=== PATIENT | male | born 1945 | race Caucasian/White ===

== ENCOUNTER 2018-01-21 00:32 | Outpatient (CLI) | payer MEDICARE, OTHER, SELFPAY ==
--- NOTE | 2018-01-21 09:01 | DI.US_ITS ---
SYMPTOMS/DIAGNOSIS: F/U AAA, I72.3 ABDOMINAL ULTRASOUND: Comparison CT scan 10/27/15 and 09/25/16. There is aneurysmal dilatation of the right common iliac artery with maximum diameters measuring 2.4 cm AP x 2.[address] scan from 09/25/16 noted a 2.3 cm right common iliac artery aneurysm. There is a left common iliac artery aneurysm measuring maximally 3.5 x 3.2 cm. This compares with 2 cm left common iliac artery aneurysm identified on . There is dilatation of the abdominal aorta with a maximum diameter seen superiorly and measuring almost 3 cm. IMPRESSION: Bilateral common iliac artery aneurysms which appear to have progressed since the most recent examination from 09/25/16, particularly the left common iliac artery aneurysm. CT Angiography of the abdomen and pelvis should be considered for further evaluation.
== END 2018-01-21 00:52 ==
PROVIDERS: PCP Internal Medicine; Visit Provider Surgery
DX: I72.3 Aneurysm of iliac artery (principal)
CPT/HCPCS: 76775

== ENCOUNTER 2018-02-24 01:03 | Outpatient (CLI) | payer MEDICARE, OTHER, SELFPAY ==
--- NOTE | 2018-02-24 14:00 | DI.CT_ITS ---
SYMPTOMS/DIAGNOSIS: ANEURYSM OF ILIAC ARTERY, I72.3 CTA OF THE ABDOMEN AND PELVIS: CT angiography was performed with multi slice acquisition and multi planar and 3D reconstruction. Comparison examination is 09/25/16. There is mild scarring in the lung bases. There is again seen a cyst in the left lobe of the liver. No suspicious hepatic lesions are seen. The spleen, pancreas, gallbladder, bile ducts and adrenal glands are unremarkable. The kidneys show normal and symmetric enhancement. There are bilateral renal cysts. The urinary bladder is intact. The reproductive organs are unremarkable. The bowel shows no evidence of obstruction or inflammation. No findings to suggest an acute appendicitis are present. There is extensive atherosclerosis of the abdominal aorta. There is a 3.1 cm distal abdominal aortic aneurysm just proximal to the bifurcation. There is a 2.3 cm right common iliac artery aneurysm just proximal to its bifurcation. There is extensive atherosclerosis and thrombus noted. There is a 2.2 cm left common iliac artery aneurysm noted. There is atherosclerotic calcification seen of the left common iliac artery. Degenerative changes are seen in the spine, particularly at L5-S1. Since the most recent examination to evaluate this area, there is a compression fracture of the L3 vertebral body with loss of 60% of the height of the vertebral body anteriorly. There is no significant retropulsion. No significant central spinal canal stenosis is seen. IMPRESSION: 1. A 3.1 cm distal abdominal aortic aneurysm. A 2.3 cm right common iliac artery aneurysm. A 2.2 cm left common iliac artery aneurysm. 2. Compression deformity of the L3 vertebral body with loss of 60% of the height of the vertebral body anteriorly. This is age indeterminate. 3. Stable hepatic and renal cysts.
[2018-02-24] MEDS: Omnipaque 350 MG/ML 100 ML BTL IJ (14:29)
== END 2018-02-24 01:23 ==
PROVIDERS: PCP Internal Medicine; Visit Provider Surgery
DX: I72.3 Aneurysm of iliac artery (principal); I71.4 Abdominal aortic aneurysm, without rupture; M48.56XD Collapsed vertebra, not elsewhere classified, lumbar region, subsequent encounter for fracture with routine healing; N28.1 Cyst of kidney, acquired
CPT/HCPCS: 74174; J3490

== ENCOUNTER 2018-09-02 00:48 | Outpatient (CLI) | payer MEDICARE, OTHER, SELFPAY ==
[2018-09-02 12:44] LABS: Kit/Specimen SENT
[2018-09-02 13:27] LABS: Iron 93 ug/dL (50-175)
[2018-09-02 13:43] LABS: Ferritin 329 ng/mL (8-388)
[2018-09-02 21:44] LABS: Estradiol <12 pg/ml (0-40)
[2018-09-05 15:06] LABS: Testosterone, Free 16.6 ng/dL (3.28-12.2); Testosterone, Total 873 ng/dL (240-950)
[2018-09-07 14:58] LABS: Methylenetetrahydrofol Reduc M Heterozygous (Negative)
== END 2018-09-02 01:08 ==
PROVIDERS: PCP Internal Medicine; Visit Provider Obstetrics & Gynecology
DX: D64.9 Anemia, unspecified (principal); E29.1 Testicular hypofunction; E56.9 Vitamin deficiency, unspecified
CPT/HCPCS: 36415; 80053; 83090; 84402; 84403; 81291; 82670; 82728; 83036; 83540; 83835

== ENCOUNTER 2018-10-13 10:19 | Outpatient (CLI) | payer MEDICARE, OTHER, SELFPAY | END 2018-10-13 10:39 | PROVIDERS: PCP Internal Medicine; Visit Provider Obstetrics & Gynecology | DX: I10 Essential (primary) hypertension (principal) | CPT/HCPCS: 36415; 80053; 83090; 82728; 83036 ==

== ENCOUNTER 2018-10-30 10:52 | Outpatient (CLI) | payer MEDICARE, OTHER, SELFPAY ==
[2018-10-30 12:14] LABS: ALT 32 U/L (12-78); Albumin 3.5 g/dL (3.4-5.0); Alkaline Phosphatase 89 U/L (46-116); Anion Gap 8.4 mmol/L (3-11); BUN 23 mg/dL (7-18); Bilirubin, Total 0.8 mg/dL (0.2-1.0); CO2 24.6 mmol/L (21.0-32.0); CREATININE 1.08 mg/dL (0.70-1.30); Calcium 8.8 mg/dL (8.5-10.1); Chloride 105 mmol/L (98-107); Glucose 143 mg/dL (70-100); Potassium 4.5 mmol/L (3.5-5.1); Sodium 138 mmol/L (136-145); Total Protein 6.2 g/dL (6.4-8.2)
[2018-10-30 12:25] LABS: AST 26 U/L (15-37)
[2018-10-30 13:06] LABS: Ferritin 207 ng/mL (8-388)
[2018-11-02 11:08] LABS: Homocysteine 9.8 umol/L (4.5-12.4)
== END 2018-10-30 11:12 ==
PROVIDERS: PCP Internal Medicine; Visit Provider Obstetrics & Gynecology
DX: E88.81 Metabolic syndrome and other insulin resistance (principal); E72.11 Homocystinuria; D64.9 Anemia, unspecified; Z13.0 Encounter for screening for diseases of the blood and blood-forming organs and certain disorders involving the immune mechanism
CPT/HCPCS: 36415; 80053; 83090; 82728; 83036

== ENCOUNTER 2019-02-23 01:30 | Outpatient (CLI) | payer MEDICARE, OTHER, SELFPAY ==
[2019-02-23 10:09] LABS: CREATININE 1.69 mg/dL (0.70-1.30); Estimated GFR 40.09 (mL/min/1.73m2)
--- NOTE | 2019-02-23 11:03 | DI.CT_ITS ---
EXAM: CT ABDOMEN PELVIS CTA CLINICAL HISTORY: ANEURYSM OF ILIAC ARTERY I72.3. TECHNIQUE: IV and oral contrast. Axial CT angiography was performed with multi-slice acquisition and multi-planar and/or 3D reconstruc tions. FINDINGS: There is calcification along the aorta and iliac arteries. There is also tortuosity. There is mild dilatation of the lower abdominal aorta to 3.4 cm. There is no evidence of dissection. The left co mmon iliac artery is quite tortuous. Distal to the area of tortuosity, there is dilatation to 2.3 cm , not significantly changed. The right iliac artery is dilated just proximal to the bifurcation to 2 .5 cm, slightly greater when compared with the previous exam. Distally the internal and external tod ac arteries are normal in diameter. The heart size is normal. The lung bases show minimal scarring. The liver, gallbladder, spleen, pancr eas and adrenals are unremarkable. There are cysts at the lower poles of both kidneys. There are smal l areas of bilateral renal scarring. There is symmetric renal perfusion. There is no gross renal tomy ry stenosis. There is no bowel dilatation or inflammatory change. The bladder and prostate are unrema rkable. High-density material is again noted within a severe compression fracture of L3. IMPRESSION: Severe atherosclerotic changes of the aorta and iliac arteries. Mild increase in aortic aneurysm di latation to 3 .4 cm. Stable 2.3 centimeter left iliac artery aneurysm. Increase in right common iliac artery aneurysm to 2.5 cm.
[2019-02-23] MEDS: Omnipaque 350 MG/ML 100 ML BTL IJ (11:08)
[2019-02-23] MEDS: Normal Saline Flush 10 ML SYR IVP (11:09)
== END 2019-02-23 01:50 ==
PROVIDERS: PCP Internal Medicine; Visit Provider Surgery
DX: I72.3 Aneurysm of iliac artery (principal); I71.4 Abdominal aortic aneurysm, without rupture; I70.0 Atherosclerosis of aorta
CPT/HCPCS: 74174; 82565; J3490

== ENCOUNTER 2020-03-02 01:44 | Outpatient (CLI) | payer MEDICARE, OTHER, SELFPAY ==
[2020-03-02 08:20] LABS: CREATININE 1.01 mg/dL (0.70-1.30)
--- NOTE | 2020-03-02 09:27 | DI.CT_ITS ---
EXAM: CT ABDOMEN PELVIS CTA CLINICAL HISTORY: ANEURYSM OF ILIAC ARTERY,I71.9,AORTIC ANEURYSM. TECHNIQUE: Imaging Protocol: Axial CT angiography was performed with multi-slice acquisition and m ulti-planar and/or 3D reconstructions. CONTRAST MATERIAL: Intravenous: Omnipaque 350 Contrast volume:structured data in ml Oral: yes / no COMPARISON: CT CT ABDOMEN PELVIS CTA from 02/23/2019 FINDINGS: Vascular Structures: Celiac [place]/SMA: No evidence of occlusion or significant stenosis. Renal Arteries: No evidence of occlusion or significant stenosis. There is a single renal artery per fusing each kidney. Atherosclerosis. Aorta: Atherosclerosis. Tortuosity of the abdominal aorta. There is a 3.4 cm distal abdominal aort ic aneurysm. This is unchanged. Pelvis: Iliac Arteries: There is a stable 2.4 cm right common iliac artery aneurysm. There is a stable 2.4 cm left common iliac artery aneurysm. Atherosclerosis. Common Femoral Arteries: No evidence of occlusion or significant stenosis. Atherosclerosis. Soft Tissues: Lung bases:Scarring in the lung bases. Liver: Normal density. Stable 1.3 cm cyst in the left lobe of the liver. Gallbladder and biliary tract: No radiodense calculus or dilation. Pancreas: Normal density, no abnormal calcifications or inflammatory process. Spleen: Normal. Kidneys: Normal size, contour and axis. No radiodense stones or obstructive uropathy. Bilateral renal cysts. Adrenal glands: No masses seen. Bladder: Symmetric distention, no gross wall thickening. Reproductive organs: Mildly enlarged prostate gland. Bowel: No obstruction or bowel wall thickening. No evidence of acute appendicitis. Peritoneal cavity: No ascites, collection or mesenteric inflammatory response. Bones: Degenerative changes. Vertebroplasty of the L3 vertebral body. Lymph nodes: Within normal limits. Soft tissues: Unremarkable. IMPRESSION: Stable distal abdominal aortic aneurysm and bilateral common iliac artery aneurysm since 02/23/2019. RADIATION DOSE DELIVERED: 611.47mGy.cm Total DLP DATA REPOSITORY: All CT scans at this facility are submitted to the National Radiology Data Registry (NRDR) Dose Index Registry (DIR) with the [employer] (ACR). RADIATION OPTIMIZATION: All CT scans at this facility use at least one of these dose optimization te chniques: automated exposure control; mA and/or kV adjustment per patient size (includes targeted exa ms where dose is matched to clinical indication); or iterative reconstruction.
[2020-03-02] MEDS: Normal Saline - Diluent 50 ML VIAL IV (09:31)
[2020-03-02] MEDS: Omnipaque 350 MG/ML 100 ML BTL IJ (09:31)
== END 2020-03-02 02:04 ==
PROVIDERS: PCP Internal Medicine; Visit Provider Surgery
DX: I72.3 Aneurysm of iliac artery (principal); I71.4 Abdominal aortic aneurysm, without rupture
CPT/HCPCS: 74174; 82565; J3490

== ENCOUNTER 2020-03-28 07:24 | Outpatient (CLI) | payer MEDICARE, OTHER, SELFPAY ==
[2020-03-29 12:32] LABS: SARS-CoV-2 RNA Not Detected (NotDetected); SARS-CoV-2 RNA Source Nasal/Nares
== END 2020-03-28 07:44 ==
PROVIDERS: PCP Internal Medicine; Visit Provider Surgery
DX: Z01.818 Encounter for other preprocedural examination (principal); Z11.59 Encounter for screening for other viral diseases
CPT/HCPCS: U0003

== ENCOUNTER 2021-04-06 01:32 | Outpatient (CLI) | payer MEDICARE, SELFPAY ==
[2021-04-06 14:38] LABS: CREATININE 1.1 mg/dL (0.70-1.30)
[2021-04-06] MEDS: Omnipaque 350 MG/ML 100 ML BTL IJ (15:53)
[2021-04-06] MEDS: Normal Saline - Diluent 50 ML VIAL IV (15:54)
--- NOTE | 2021-04-06 15:55 | DI.CT_ITS ---
Exam(s) CT ABDOMEN PELVIS CTA EXAM: CT ABDOMEN PELVIS CTA CLINICAL HISTORY: ANEURYSM OF ILIAC ARTERY I72.3 AORTIC ANEURYSM W/O RUPTURE I71.9. TECHNIQUE: Imaging Protocol: Axial CT angiography was performed with multi-slice acquisition and m ulti-planar and/or 3D reconstructions. CONTRAST MATERIAL: Intravenous: Omnipaque 350 Contrast volume:100 ml Oral: / no COMPARISON: CT CT ABDOMEN PELVIS CTA from 03/02/2020 FINDINGS: The lung bases are clear. There are atherosclerotic changes of the abdominal aorta with heavy calc ification and mural thrombus. There is a distal abdominal aortic aneurysm measuring 3.8 cm compared with 3.4 on the previous exam. The common iliac arteries are heavily calcified and tortuous. The le ft measures 2.4 cm. The right measures 3 cm, increasing from the previous exam where it measured 2.4 cm. The internal and external iliac and femoral arteries are normal in diameter but also heavily ca lcified..The celiac artery and superior mesenteric artery and branches are patent. The liver, spleen, pancreas, adrenals and kidneys are unremarkable. There is no bowel dilatation or inflammatory change. Bladder and prostate are unremarkable. There is a severe compression fracture L3 with high-density material consistent with a previous vertebroplasty. No new compression fracture s are seen. Degenerative changes are greatest at L5-S1. IMPRESSION: Severe atherosclerotic changes. Mild interval increase in size of abdominal aortic aneurysm to 3.8 c m. Increased size of right iliac artery measuring 3 cm. Stable left iliac artery aneurysm of 2.4 cm . RADIATION DOSE DELIVERED: 508.14mGy.cm Total DLP DATA REPOSITORY: All CT scans at this facility are submitted to the National Radiology Data Registry (NRDR) Dose Index Registry (DIR) with the [employer] (ACR). RADIATION OPTIMIZATION: All CT scans at this facility use at least one of these dose optimization te chniques: automated exposure control; mA and/or kV adjustment per patient size (includes targeted exa ms where dose is matched to clinical indication); or iterative reconstruction.
== END 2021-04-06 01:52 ==
PROVIDERS: PCP Internal Medicine; Visit Provider Surgery
DX: I72.3 Aneurysm of iliac artery (principal); I71.4 Abdominal aortic aneurysm, without rupture; Z01.812 Encounter for preprocedural laboratory examination
CPT/HCPCS: 74174; 82565; J3490

== ENCOUNTER → 2023-01-22 01:52 | Outpatient (CLI) | payer MEDICARE, SELFPAY ==
--- NOTE | 2023-01-22 | DI.CT_ITS ---
Exam(s) CT ABDOMEN PELVIS WO EXAM: CT ABDOMEN PELVIS WO CLINICAL HISTORY: AAA I71.40 ILIAC ANEURYSM I72.3. TECHNIQUE: Imaging Protocol: Axial computed tomography images with coronal and sagittal reformatted images were created and reviewed. COMPARISON: CT CT ABDOMEN PELVIS CTA from 04/06/2021 FINDINGS: ABDOMEN: Lung Bases: Coronary artery calcifications are present. Liver: Normal density. No measurable mass. Gallbladder and biliary tract: No radiodense calculus or biliary ductal dilation. Pancreas: Normal density, no abnormal calcifications or inflammatory process. Spleen: Normal. Kidneys: Normal size, contour and axis.No radiodense stones or obstructive uropathy. There again seen bilateral renal cysts which appears stable. Parenchymal calcifications are seen in the right kidney . Adrenal glands: No mass is seen. Lymph nodes: Within normal limits. Abdominal Aorta: There has been interval increase in size of the distal abdominal aortic aneurysm now measuring 4.6 x 4.0 cm. This compares to 4 x 3.4 cm on the prior examination. The more proximal co mponent of the abdominal aortic aneurysm also has increased in size measuring 4.2 x 4.1 cm compared t o 3.2 x 3.1 cm. There is atherosclerosis present. The right iliac artery aneurysm measures 3.2 cm c ompared to 3 cm on the prior examination. The left iliac artery aneurysm measures 2.6 cm compared to 2.4 cm on the prior examination. PELVIS: Bladder:Symmetric distention, no gross wall thickening. Bowel: No obstruction or bowel wall thickening. Appendix is unremarkable. There is a right inguinal hernia containing a small knuckle of small bowel. No evidence of obstruction is seen. Peritoneal cavity: No ascites, collection or mesenteric inflammatory response. No free air. Reproductive organs: There is an enlarged prostate gland. Bones: Within normal limits. There is an old compression fracture deformity of L3 with evidence of ve rtebral plasty. Moderate degenerative changes are seen in the spine. Soft Tissues: Within normal limits. IMPRESSION: Interval increase in size of both the abdominal aortic aneurysm and both common iliac artery aneurysm s. RADIATION DOSE DELIVERED: 716.15mGy.cm Total DLP DATA REPOSITORY: All CT scans at this facility are submitted to the National Radiology Data Registry (NRDR) Dose Index Registry (DIR) with the [employer] (ACR). RADIATION OPTIMIZATION: All CT scans at this facility use at least one of these dose optimization te chniques: automated exposure control; mA and/or kV adjustment per patient size (includes targeted exa ms where dose is matched to clinical indication); or iterative reconstruction.
== END ==
PROVIDERS: PCP Internal Medicine; Visit Provider Surgery Vascular Surgery
DX: I71.40 Abdominal aortic aneurysm, without rupture, unspecified (principal); I72.3 Aneurysm of iliac artery
CPT/HCPCS: 74176

== ENCOUNTER 2024-05-20 01:41 | Outpatient (CLI) | payer MEDICARE, SELFPAY ==
--- NOTE | 2024-05-20 13:24 | DI.CT_ITS ---
Exam(s) CT ABDOMEN PELVIS WO EXAM: CT ABDOMEN PELVIS WO CLINICAL HISTORY: AAA I71.40 S/P EVAR, KNOWN AAA, EVAL SIZE CHECK FOR ENODLEAK, MIGRATION. TECHNIQUE: Imaging Protocol: Axial computed tomography images with coronal and sagittal reformatted images were created and reviewed CONTRAST MATERIAL: Intravenous: none Oral: None COMPARISON: CT CT ABDOMEN PELVIS WO from 01/22/2023 FINDINGS: VISUALIZED LUNG BASES: Scarring in the medial left lung base is noted. There are no pleural effusion s.. ABDOMEN: ABDOMINAL AORTA: Again noted is an hourglass shaped infrarenal abdominal aortic aneurysm as well as s ignificant arteriomegaly and aneurysmal dilatation of the iliac arteries. When compared to the CT scan of 01/22/2023 the maximum external diameter of the superior aspect of th e aneurysm is presently 4.9 cm this has increased in size from the measurement of 4.2 cm on the prior study. The maximum diameter of the lower aspect of the aneurysm is 5.2 cm, this further increased in size fr om prior measurement of 4.7 cm. The arterial megaly extends into the peripherally calcified iliac arteries. There is superimposed ane urysmal dilatation of the distal right common iliac artery which exhibits maximum diameter of 3.2 cm on today's study, this in the distal aspect of the right common iliac artery and similar measurement to the prior study of 01/22/2023. There is no significant aneurysmal dilatation in the ipsilateral ri ght external and internal iliac arteries nor within the right common femoral artery. There is a longer fusiform aneurysm of the distal 2/3 of the left common iliac artery again noted, th is presently exhibiting maximum external diameter of 3.2 cm. This is increased in size from prior rosalind surement of 2.6 cm. There is no aneurysmal dilatation of the left external iliac artery and left inte rnal iliac artery nor aneurysmal dilatation of the left common femoral artery. There is no evidence of obvious leak at this time. There is no ascites. LIVER: There are no obvious focal hepatic lesions evident of this noninfused study. GALLBLADDER/BILIARY: No obvious gallbladder pathology. CBD is not dilated. PANCREAS: No evidence of pancreatic mass nor dilatation of the pancreatic duct. SPLEEN: Spleen is not enlarged. No obvious intrasplenic lesions. ADRENALS: There are no significant adrenal masses. KIDNEYS:There are few small benign cortical cysts in the mid and lower poles of the left kidney. Thes e do not require further workup. There are no cysts nor solid lesions evident in the right kidney. So me capsular calcification or peripheral calculi in the right kidney is noted but no evidence of subca psular hematoma. There is no hydronephrosis nor hydroureter on either side.. LYMPH NODES: There is no retroperitoneal nor paraaortic adenopathy. ABDOMINAL WALL: There are bilateral inguinal hernias. Some small bowel is noted in the proximal aspec t of the right inguinal hernia and slightly less so on the left side. These bowel loops do not appear edematous. No transition point at these levels. GI: There are no ischemic appearing bowel loops. No evidence of bowel obstruction, free air, nor absc ess. PELVIS: LYMPH NODES: There is no intrapelvic nor inguinal adenopathy. GI: No evidence of appendicitis.No evidence of sigmoid diverticulitis. URINARY BLADDER: No calculi nor obvious masses evident REPRODUCTIVE: Mildly enlarged prostate. OSSEOUS: There is vertebroplasty cement again evident in the collapsed L3 vertebral body, unchanged. There is advanced disc space narrowing again noted at L5-S1 level. No listhesis. No significant osseo us lesions. IMPRESSION: 1. Hourglass shaped long infrarenal abdominal aortic aneurysm as well as aneurysmal dilatation of bot h common iliac arteries with measurements as described above. Please note that these measurements hav e significantly further increased when compared to the most recent CT scan of 01/22/2023. There is no evidence of leak at this time. 2. There are bilateral inguinal hernias. There is some small bowel within the upper aspect of the rig ht inguinal hernia with no transition point nor bowel wall edema at this level. No evidence of bowel obstruction. There also no ischemic appearing bowel loops. RADIATION DOSE DELIVERED: 427.16mGy.cm Total DLP DATA REPOSITORY: All CT scans at this facility are submitted to the National Radiology Data Registry (NRDR) Dose Index Registry (DIR) with the [employer] (ACR). RADIATION OPTIMIZATION: All CT scans at this facility use at least one of these dose optimization te chniques: automated exposure control; mA and/or kV adjustment per patient size (includes targeted exa ms where dose is matched to clinical indication); or iterative reconstruction.
== END 2024-05-20 02:01 ==
LOC: DI 01:42
PROVIDERS: PCP Internal Medicine; Visit Provider Surgery Vascular Surgery
DX: I71.40 Abdominal aortic aneurysm, without rupture, unspecified (principal)
CPT/HCPCS: 74176

== ENCOUNTER 2024-09-22 00:50 | Outpatient (CLI) | payer MEDICARE, SELFPAY ==
--- NOTE | 2024-09-22 | DI.CT_ITS ---
Exam(s) CT ABDOMEN PELVIS CTA EXAM: CT ABDOMEN PELVIS CTA CLINICAL HISTORY: KNOWN AAA,i71.40,CHECK SIZE,MIGRATION AND ENDOLEAK. TECHNIQUE: Imaging Protocol: Axial CT angiography was performed with multi-slice acquisition and m ulti-planar and/or 3D reconstructions. CONTRAST MATERIAL: Intravenous: Omnipaque 350 Contrast volume:100 ml Oral: no COMPARISON: CT CT ABDOMEN PELVIS WO from 05/20/2024 FINDINGS: Aorta: There has been continued increase in size of the previously noted hourglass shaped abdominal aortic aneurysm which now measures 5.6 at the upper portion and 5.5 cm at the lower portion, compared with 4.9 and 4.2 cm on the prior exam. There is mural thrombus eccentric toward the left of the upp er portion of the aneurysm with a thickness of 13 millimeters. The distal portions of the common tod ac arteries are again noted to be dilated, with the right side measuring 3.4 cm and the left measurin g 3.4 cm and which may not be significantly changed given differences in measurement error. The administered IV contrast is not extend significantly into the internal and external iliac arterie s which show calcification but no gross evidence of stenosis or aneurysm. Celiac [place]:No evidence of stenosis. SMA: No evidence of stenosis. Renal Arteries: No evidence of stenosis. There is a single renal artery perfusing each kidney. Venous structures: Not opacified with contrast. Lung bases:No acute findings. Scarring left lung base. Liver: Normal size. Normal density. No measurable mass. Gallbladder and biliary tract: No evidence of calculi. No gallbladder wall thickening. No biliary di lation. Pancreas: Normal density, no abnormal calcifications or inflammatory process. Spleen: Normal. Kidneys: Normal size, contour and axis. No obstructive uropathy. No masses seen. No evidence of calcu li. Left renal cysts. Adrenal glands: No masses seen. Bladder: No gross wall thickening. No evidence of calculi. No evidence of mass. Bowel: No obstruction or bowel wall thickening. Peritoneal cavity: No ascites. No focal collection. No mesenteric inflammatory response. Lymph nodes: Within normal limits. Reproductive: Unremarkable. Soft Tissues:Unremarkable. Bones: Stable L3 compression fracture with vertebroplasty material. Degenerative changes and mild sc oliosis. IMPRESSION: Continued increase in size abdominal aortic aneurysm, measuring 5 0.6 cm at the upper portion in 5.5 at the cm at the lower portion compared with 4.9 and 5.2 cm on the prior exam. There is small amount of mural thrombus but no evidence of leak. Stable bilateral common iliac artery dilatation. RADIATION DOSE DELIVERED: 148.09mGy.cm Total DLP DATA REPOSITORY: All CT scans at this facility are submitted to the National Radiology Data Registry (NRDR) Dose Index Registry (DIR) with the [employer] (ACR). RADIATION OPTIMIZATION: All CT scans at this facility use at least one of these dose optimization te chniques: automated exposure control; mA and/or kV adjustment per patient size (includes targeted exa ms where dose is matched to clinical indication); or iterative reconstruction.
[2024-09-22 08:33] LABS: CREATININE 0.9 mg/dL (0.70-1.30); Estimated GFR 87.96 (mL/min/1.73m2)
[2024-09-22] MEDS: Normal Saline - Diluent 50 ML VIAL IJ (08:59)
[2024-09-22] MEDS: Omnipaque 350 MG/ML 100 ML BTL IJ (09:00)
== END 2024-09-22 01:10 ==
LOC: DI 00:50
PROVIDERS: PCP Internal Medicine; Visit Provider Surgery Vascular Surgery
DX: I71.40 Abdominal aortic aneurysm, without rupture, unspecified (principal)
CPT/HCPCS: 74174; 82565; J3490